=== PATIENT | male | born 1995 | race Caucasian/White ===

== ENCOUNTER 2023-06-06 11:51 | Emergency (ER) | payer BC, SELFPAY ==
[2023-06-06 12:20] VITALS: BP 137/79
[2023-06-06 12:39] LABS: % Basophils 0.3 % (0-2); % Eosinophils 0.1 % (0-6); % Immature Granulocytes 0.5 % (0-0.5); % Lymphocytes 8.7 % (20.5-51.1); % Monocytes 3.1 % (1.7-9.3); % Neutrophils 87.3 % (42.2-75.2); Absolute Immature Granulocytes 0.1 10^3/uL (0-0.05); Absolute Lymphocytes 0.9 10^3/uL (1.2-3.4); Absolute Monocytes 0.3 10^3/uL (0.1-0.6); Absolute Neutrophils 9.5 10^3/uL (1.4-6.5); Hematocrit 40.9 % (39.0-52.0); Hemoglobin 14.9 g/dL (13.0-18.0); Mean Corp Hgb Conc. 36.4 g/dL (33.0-37.0); Mean Corpuscular Hgb 31.9 pg (27.0-31.0); Mean Corpuscular Volume 87.6 fL (80.0-94.0); Mean Platelet Volume 9.4 fL (7.4-10.4); Nucleated Red Blood Cells % 0 % (-); Platelet Count 254 10^3/uL (130-400); Red Blood Cell Count 4.67 10^6/uL (4.70-6.10); Red Cell Dist. Width 11.9 % (11.5-14.5); White Blood Cell Count 10.9 10^3/uL (4.8-10.8)
[2023-06-06 12:53] LABS: ALT (SGPT) 31 U/L (0-50); AST (SGOT) 34 U/L (17-59); Albumin 4.9 g/dl (3.5-5.0); Alkaline Phosphatase 76 U/L (38-126); Blood Urea Nitrogen 15 mg/dl (9-20); Calcium 9.7 mg/dl (8.4-10.2); Carbon Dioxide 21 mmol/L (22-30); Chloride 105 mmol/L (98-107); Glucose 96 mg/dl (70-99); Lipase 47 U/L (23-300); Potassium 4.2 mmol/L (3.5-5.1); Sodium 136 mmol/L (135-145); Total Bilirubin 0.7 mg/dl (0.2-1.3); Total Protein 7.8 g/dl (6.3-8.2); eGFR > 60.00
--- NOTE | 2023-06-06 14:10 | ED.GENMED ---
History of Present Illness
General
Chief Complaint: Abdominal Symptoms
Source: patient and significant other
Time Seen by Provider: 06/06/23 13:59
Travel History
Have you had any contact with someone who has COVID-19?: No
Do you have any symptoms of coronavirus? Fever > 100 degrees, chills, cough, shortness of breath, sore throat, loss of taste or smell, muscle aches, or headache?: No
History of Present Illness
History of Present Illness:
pt presents after he started vomiting this morning around 7 AM and could not stop every 20 minutes. pt states that he now feels better. pain in upper abd only when prior to vomiting. no fevers. he has eosinophilic esophagitis history. Patient also
admits that he drank 4 drinks last night and had not had any drinks throughout May. He does not think it was related but did start vomiting this morning.
Past History
Past History
ED Past Medical History: Other (TMJ, eosinophilic esophagitis); Negative Asthma, HTN, Hypercholesterolemia or NIDDM
ED Past Surgical History: None
Social History
Tobacco: Non-smoker
Alcohol: Occasional
Drug: None
Personal: Single
Living: with family
Phy Exam
Physical Exam
Physical Exam:
CONSTITUTIONAL Patient alert and oriented to person, place and time. Well-appearing. Vital signs reviewed.
HEAD atraumatic, normocephalic.
EYES eyelids normal to inspection, Pupils equally round and reactive to light, Extraocular muscles intact, Conjunctiva normal, Sclera normal.
NECK normal range of motion, Trachea midline, no jugular venous distention.
RESPIRATORY CHEST No respiratory distress noted, Chest expansion equal
ABDOMEN mild epigastric tenderness, Bowel sounds normal. No distention.
BACK normal inspection, no obvious deformities
UPPER EXTREMITY range of motion normal, Motor strength normal, no cyanosis, no edema.
LOWER EXTREMITY range of motion normal, Motor strength normal, no cyanosis, no edema.
NEURO Speech normal, No focal motor deficits, Kate coma scale 15, Memory normal, Cranial Nerves intact to screening exam.
SKIN skin warm, dry, and normal in color.
PSYCHIATRIC patient oriented to person place and time, Normal affect.
Course
Orders/Labs/Results
Orders:
Orders
06/06/23 12:30
Complete Blood Count/With Diff Urgent
Comprehensive Metabolic Panel Urgent
Lipase Urgent
Abnormal Lab Results
06/06/23
12:30
WBC 10.9 H 10^3/uL
(4.8-10.8)
RBC 4.67 L 10^6/uL
(4.70-6.10)
MCH 31.9 H pg
(27.0-31.0)
Abs Immat Gran (auto) 0.1 H 10^3/uL
(0-0.05)
Absolute Neuts (auto) 9.5 H 10^3/uL
(1.4-6.5)
Absolute Lymphs (auto) 0.9 L 10^3/uL
(1.2-3.4)
Neutrophils % 87.3 H %
(42.2-75.2)
Lymphocytes % 8.7 L %
(20.5-51.1)
Carbon Dioxide 21 L mmol/L
(22-30)
06/06/23 12:30
06/06/23 12:30
Vital Signs
Initial and Last Documented VS:
Initial Vital Signs
Temp Pulse Resp BP Pulse Ox
98.0 F 99 20 137/79 100
06/06/23 12:20 06/06/23 12:20 06/06/23 12:20 06/06/23 12:20 06/06/23 12:20
Last Documented Vital Signs
Temp Pulse Resp BP Pulse Ox
98.0 F 99 20 137/79 100
06/06/23 12:20 06/06/23 12:20 06/06/23 12:20 06/06/23 12:20 06/06/23 12:20
MDM/Problems Addressed
MDM/Problems Addressed:
Gastritis, vomiting
*Pulse Oximetry
Patient hypoxic: no
*Critical Care Note
Total Time (30-74mins, 75-104mins- exclusive of procedures): Not Applicable
Data Reviewed
Source: patient and significant other
Further Testing Considered But Not Given:
Considered CT but patient is feeling much better.
Patient Management
Escalation/DeEscalation of care consider admission/obs:
Patient feeling better. Outpatient management.
ED Attending Note
-
Portions of this chart may have been created with voice recognition software.� Occasional wrong word or��sound alike� substitutions may have occurred due to the inherent limitations of voice recognition software.
Discharge Plan
Departure
Patient Disposition: Home (Routine Discharge)
Date of Disposition: 06/06/23
Time of Disposition: 14:11
Patient with high blood pressure during this ER visit?: Yes
Discharge Problem:
Vomiting
Instructions: Clear Liquid Diet, [place] Diet, Nausea and Vomiting, Adult (DC)
Prescriptions:
New
ondansetron 4 mg tablet,disintegrating
4 mg PO TIDPRN PRN (Reason: nausea/vomiting) Qty: 14 0RF
No Action
ondansetron 4 MG tablet,disintegrating
4 mg PO TIDPRN PRN (Reason: NAUSEA) Qty: 12 0RF
dicyclomine 10 MG capsule
10 mg PO .Q6-8HPRN PRN (Reason: Abdominal cramps) Qty: 12 0RF
omeprazole [Prilosec] 40 MG capsule,delayed release(DR/EC)
40 mg PO DAILY Qty: 20 0RF
fluticasone propionate 1 SPRAY spray,suspension
1 spray intranasal DAILY Qty: 1 0RF
amoxicillin 500 mg capsule
500 mg PO TID Qty: 30 0RF
Referrals:
García Solo MD [Family Provider] -
Activity Restrictions/Additional Instructions:
Drink plenty fluids. Advance diet slowly as discussed. Return immediately for intractable vomiting, fevers, worsening symptoms or any other concerns.
[2023-06-06 14:32] VITALS: BP 109/60
== END 2023-06-06 14:36 | disposition home or self-care (01) ==
LOC: EMR 11:51
PROVIDERS: EMERGENCY PHYSICIAN Emergency Medicine; FAMILY PHYSICIAN Family Medicine
DX: R11.10 Vomiting, unspecified (principal); R10.10 Upper abdominal pain, unspecified; R03.0 Elevated blood-pressure reading, without diagnosis of hypertension; K20.0 Eosinophilic esophagitis; Z91.048 Other nonmedicinal substance allergy status
CPT/HCPCS: 99283; 80053; 83690; 85025

== ENCOUNTER → 2024-06-23 12:46 | Outpatient (REF) | payer BC, SELFPAY | LOC: HWRAD 12:46 | PROVIDERS: ATTENDING PHYSICIAN Student in an Organized Health Care Education/Training Program | DX: R10.9 Unspecified abdominal pain (principal) | CPT/HCPCS: 71046; 76700 ==